=== PATIENT | male | born 1980 | race Caucasian/White ===

== ENCOUNTER 2017-10-25 16:39 | Emergency (ER) | payer MEDICAID, OTHER ==
[~2017-10-25] VITALS: Ht 180.3 cm; Wt 90.0 kg
[2017-10-25] MEDS ORDERED: proCHLORperazine 10 MG/2 ml inj IM ONE (17:50)
[2017-10-25] MEDS ORDERED: acetaminophen 325mg tablet PO ONE (17:50)
[2017-10-25] MEDS ORDERED: normal saline 1000ML IV soln IVB ONE (17:50)
[2017-10-25] MEDS ORDERED: ketorolac trometh. 30mg/ml inj. IV ONE (17:50)
[2017-10-25] MEDS ORDERED: diphenhydrAMINE 50 mg/ml inj IV ONE (17:50)
[2017-10-25] MEDS ORDERED: magnesium 2GM in 50ml NS 50 ML IV ONE (17:50)
[2017-10-25] MEDS ORDERED: aspirin 325mg tablet PO ONE (17:50)
[2017-10-25] MEDS ORDERED: dexamethasone 4mg/ml inj IV ONE (17:50)
[2017-10-25 21:57] VITALS: BP 145/96
== END 2017-10-25 21:59 | disposition home or self-care (01) ==
LOC: ER 16:40
DX: G43.909 Migraine, unspecified, not intractable, without status migrainosus (principal); F15.10 Other stimulant abuse, uncomplicated; F11.10 Opioid abuse, uncomplicated
CPT/HCPCS: 96365; 96366; 96372; 96375; 99285; J0780; J1100; J1200; J1885; J3475; J7030